=== PATIENT | female | born 1985 | race Caucasian/White ===

== ENCOUNTER 2016-11-10 22:46 | Outpatient (CLI) | payer BC, MEDICAID, OTHER ==
[~2016-11-10] VITALS: Ht 154.9 cm; Wt 70.8 kg
[2016-11-10 23:03] VITALS: Ht 154.9 cm; Wt 70.8 kg
[2016-11-10] MEDS ORDERED: PREN1TAB79 PO (23:03)
[2016-11-10] MEDS ORDERED: PYRI50TA80 PO (23:03)
[2016-11-10] MEDS ORDERED: FERR325C PO (23:03)
[2016-11-10 23:05] VITALS: BP 106/65; PULSE 110; RESP 20
[2016-11-11] MEDS ORDERED: TERBUTALINE 1 MG/ML INJ SC PRN (00:30)
[2016-11-11] MEDS: LACTATED RINGER'S 1,000 ML IV* PRN ×2 (01:04→05:12)
[2016-11-11] MEDS ORDERED: NIFEdipine 10 MG CAP PO ONE (01:30)
[2016-11-11] MEDS ORDERED: morphine 10 MG INJ IM ONE (02:30)
--- NOTE | 2016-11-11 07:32 | QN ---
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 Nov 11, 2016 07:32
--- NOTE | 2016-11-11 08:48 | RADRPT ---
PROCEDURE: OB ultrasound CLINICAL INDICATION: Pelvic pain TECHNIQUE: Multiple transverse and longitudinal OB images of the pelvis were obtained. The images were reviewed on a high-resolution PACS workstation. COMPARISON: None FINDINGS: A single live intrauterine is seen. The presentation is vertex. The placenta is grade II and anterior in location. No evidence of placenta abruption or previa is seen. The heart rate is 130 beats per minute. The amniotic fluid index is 11 cm. movement 2 tone 2 breathing 2 Amniotic fluid 2 IMPRESSION: Biophysical profile of 05/07. RPTAT: HPNM Physician Danita Date Time Electronically viewed and signed by Physician Danita on 11/11/2016 08:48 /
--- NOTE | 2016-11-11 09:44 | TRIAGE ---
OB Triage Datetime Report Generated by CPN: 11/11/2016 09:43 Datetime: 11/11/2016 09:00 Stage of : OB Triage Maternal Assessment Level of Consciousness: Fully Conscious RUQ Epigastric Pain: Denies Labor Evaluation Frequency: NONE Monitor Mode: External Quality: Mild Resting Tone [place]: Relaxed Heart Rate FHR Baseline Rate: 125 Monitor Mode: External US FHR Baseline Changes: Return to Previous Baseline Variability: Moderate 6-25 bpm Accelerations: 15X15 Decelerations: None Pain Assessment Pain Scale: 0 Pain Presence: None/Denies Pain Type: N/A Pain Goal: 3 Membrane Status: Intact Vaginal Bleeding: None Datetime: 11/11/2016 08:00 Stage of : OB Triage Maternal Assessment Level of Consciousness: Fully Conscious RUQ Epigastric Pain: Denies Labor Evaluation Frequency: NONE Monitor Mode: External Quality: Mild Resting Tone [place]: Relaxed Heart Rate FHR Baseline Rate: 125 Monitor Mode: External US FHR Baseline Changes: Return to Previous Baseline Variability: Moderate 6-25 bpm Accelerations: 15X15 Decelerations: None Pain Assessment Pain Scale: 0 Pain Presence: None/Denies Pain Type: N/A Pain Goal: 3 Membrane Status: Intact Vaginal Bleeding: None Datetime: 11/11/2016 07:00 Stage of : OB Triage Assessment Type: Triage Maternal Assessment Level of Consciousness: Fully Conscious Blurred Vision: No Respiratory Effort: Unlabored; Regular Rhythm; Equal Expansion RUQ Epigastric Pain: Denies Lower Extremities Edema: None Degree: None Upper Extremities Edema: None Degree: None Facial Edema: None Fall Risk Assessment History of Falling: (0) No Secondary Diagnosis: (0) No Ambulatory Aid: (0) Bedrest/Nurse Assist IV Therapy: (0) No Gait: (0) Normal/Bedrest/Immobile Mental Status: (0) Oriented to Own Ability Fall Score: 0 Fall Risk Score Definition: No Risk: No action required Labor Evaluation Frequency: NONE Monitor Mode: External Quality: Mild Resting Tone [place]: Relaxed Heart Rate FHR Baseline Rate: 110 Monitor Mode: External US Variability: Moderate 6-25 bpm Accelerations: None (Annotations: PT RECEIVED MORPHINE SULFATE FOR PAIN CONTROL) Decelerations: None Pain Assessment Pain Scale: 0 Pain Presence: None/Denies Pain Type: N/A Pain Goal: 3 Membrane Status: Intact Vaginal Bleeding: None Datetime: 11/11/2016 06:53 Labor Evaluation Frequency: NONE Monitor Mode: External Duration (sec)2399: NONE Pattern: Normal: <= 5 Contractions in 10 Minutes Heart Rate FHR Baseline Rate: 120 Monitor Mode: External US FHR Baseline Changes: No Baseline Change Variability: Moderate 6-25 bpm Datetime: 11/11/2016 06:00 Labor Evaluation Frequency: NONE Monitor Mode: External Duration (sec)2399: none Pattern: Normal: <= 5 Contractions in 10 Minutes Heart Rate FHR Baseline Rate: 120 Monitor Mode: External US FHR Baseline Changes: No Baseline Change Variability: Moderate 6-25 bpm Decelerations: None Category: Category I Datetime: 11/11/2016 05:00 Labor Evaluation Frequency: X2 Monitor Mode: External Duration (sec)2399: 60-80 Pattern: Normal: <= 5 Contractions in 10 Minutes Heart Rate FHR Baseline Rate: 125 Monitor Mode: External US FHR Baseline Changes: No Baseline Change Variability: Moderate 6-25 bpm Accelerations: 15X15 Decelerations: None Category: Category I Datetime: 11/11/2016 04:00 Labor Evaluation Frequency: X2 Monitor Mode: External Duration (sec)2399: 40-70 Pattern: Normal: <= 5 Contractions in 10 Minutes Heart Rate FHR Baseline Rate: 135 Monitor Mode: External US FHR Baseline Changes: No Baseline Change Variability: Moderate 6-25 bpm Accelerations: 15X15 Decelerations: None Datetime: 11/11/2016 03:14 Stage of : OB Triage Pain Assessment Pain Scale: 7 Pain Presence: Intermittent Pain Type: Cramping Pain Location: Abdomen Pain Goal: 0 Pain Relief Measures: Pain Medication Given Datetime: 11/11/2016 03:00 Labor Evaluation Frequency: NONE Monitor Mode: External Duration (sec)2399: NONE Pattern: Normal: <= 5 Contractions in 10 Minutes Heart Rate FHR Baseline Rate: 125 Monitor Mode: External US FHR Baseline Changes: No Baseline Change Variability: Moderate 6-25 bpm Category: Category I Datetime: 11/11/2016 02:13 Monitor Mode: Palpation Resting Tone [place]: Relaxed Monitor Mode: External US Datetime: 11/11/2016 02:11 Vaginal Exam Dilatation (cms): 1.0 Effacement (%): 60 Station: -3 Exam By: lottie rn Datetime: 11/11/2016 02:00 Labor Evaluation Frequency: 8-12 Monitor Mode: External Duration (sec)2399: 90-120 Pattern: Normal: <= 5 Contractions in 10 Minutes Heart Rate FHR Baseline Rate: 130 Monitor Mode: External US FHR Baseline Changes: No Baseline Change Variability: Moderate 6-25 bpm Datetime: 11/11/2016 01:00 Labor Evaluation Frequency: X4 Monitor Mode: External Duration (sec)2399: 50-80 Pattern: Normal: <= 5 Contractions in 10 Minutes Heart Rate FHR Baseline Rate: 140 Monitor Mode: External US FHR Baseline Changes: No Baseline Change Variability: Moderate 6-25 bpm Accelerations: Prolonged Category: Category I Datetime: 11/11/2016 00:21 Stage of : OB Triage Datetime: 11/11/2016 00:00 Labor Evaluation Frequency: OCC Monitor Mode: External Duration (sec)2399: 40-60 Pattern: Normal: <= 5 Contractions in 10 Minutes Heart Rate FHR Baseline Rate: 150 Monitor Mode: External US FHR Baseline Changes: No Baseline Change Variability: Moderate 6-25 bpm Accelerations: 15X15 Decelerations: None Category: Category I Datetime: 11/10/2016 23:30 Labor Evaluation Frequency: OCCASIONAL Monitor Mode: External Pattern: Normal: <= 5 Contractions in 10 Minutes Heart Rate FHR Baseline Rate: 140 Monitor Mode: External US FHR Baseline Changes: No Baseline Change Variability: Moderate 6-25 bpm Decelerations: None Datetime: 11/10/2016 23:04 Vaginal Exam Dilatation (cms): 1.0 Effacement (%): 60 Station: -3 Exam By: LOTTIE RN Vaginal Bleeding: None Cervix, Consistency: Moderate Cervix, Position: Posterior Presentation 'A': Cephalic Datetime: 11/10/2016 23:00 Assessment Type: Triage Maternal Assessment Level of Consciousness: Fully Conscious DTR's/Clonus: DTRs 2+; No Clonus Headache: Denies Blurred Vision: No Respiratory Effort: Unlabored; Regular Rhythm; Equal Expansion Breath Sounds, Left: Clear and Equal Breath Sounds, Right: Clear and Equal Nausea/Vomiting: Denies RUQ Epigastric Pain: Denies Lower Extremities Edema: None Upper Extremities Edema: None Facial Edema: None Fall Risk Assessment History of Falling: (0) No Secondary Diagnosis: (0) No Ambulatory Aid: (0) Bedrest/Nurse Assist IV Therapy: (0) No Gait: (0) Normal/Bedrest/Immobile Mental Status: (0) Oriented to Own Ability Fall Score: 0 Fall Risk Score Definition: No Risk: No action required Datetime: 11/10/2016 22:58 EGA: 35.2 Time Provider Notified: 11/10/2016 22:58 Provider Notified: REICHE Datetime: 11/10/2016 22:57 Time of Arrival: 11/10/2016 22:40 Arrived By: Ambulatory Arrived From: Home Chief Complaint: UC'S SINCE X3DAYS,OCCASIONAL Movement: Present Contractions: Occasional Time Contractions Began: 11/07/2016 09:00 Contractions: [id number] Rupture of Membranes: Denies Vaginal Bleeding: None Vaginal Discharge: Present Recent Sexual Intercouse: Denies Abdominal Trauma: Not Applicable Patient Complaints: Contractions Time Provider Notified: 11/10/2016 22:58 Provider Notified: REICHE Initial Plan: efm, sve, call ob Datetime: 11/10/2016 22:55 Stage of : OB Triage Pain Assessment Pain Scale: 6 Pain Presence: Intermittent Pain Type: Contraction Datetime: 11/10/2016 22:53 Stage of : OB Triage Monitor Mode: External (Annotations: MONITORS APPLIED) Monitor Mode: External US (Annotations: MONITORS APPLIED)
== END 2016-11-11 10:05 | disposition home or self-care (01) ==
LOC: OBT 22:46 → L-D 22:48 → OBT 11-11 10:05
PROVIDERS: ATTEND Obstetrics & Gynecology
DX: O62.9 Abnormality of forces of labor, unspecified (principal); R10.2 Pelvic and perineal pain; Z3A.35 35 weeks gestation of pregnancy
CPT/HCPCS: 36415; 76818; 96360; 96361; 96367; J2270; Z7500; Z7610; G0463; J3105

== ENCOUNTER 2016-11-14 17:14 | Inpatient (IN) | payer OTHER ==
[~2016-11-14] VITALS: Ht 154.9 cm; Wt 70.3 kg
[~2016-11-14 17:14] MED LIST: FERR325C PO; PREN1TAB79 PO; PYRI50TA80 PO
[2016-11-14 17:38] VITALS: BP 97/61; PULSE 110; RESP 18; Ht 154.9 cm; Wt 70.3 kg
[2016-11-14 18:13] LABS: ADD UMIC YES; URINE BILIRUBIN (Dip) 1+ (NEGATIVE); URINE BLOOD (Dip) TRACE (NEGATIVE); URINE COLOR YELLOW (YELLOW); URINE GLUCOSE (Dip) NEGATIVE (NEGATIVE); URINE KETONES (Dip) TRACE (NEGATIVE); URINE LEUKOCYTE ESTERASE (Dip) 1+ (NEGATIVE); URINE NITRITE (Dip) NEGATIVE (NEGATIVE); URINE TOTAL PROTEIN (Dip) TRACE (NEGATIVE); URINE UROBILINOGEN (Dip) 0.2 E.U./dL (0.1-1.0)
[2016-11-14 18:19] LABS: BACTERIA,URINE MODERATE; ICTOTEST NEGATIVE (NEGATIVE)
--- NOTE | 2016-11-14 18:40 | RADRPT ---
PROCEDURE: OB ultrasound CLINICAL INDICATION: Contractions TECHNIQUE: Multiple transverse and longitudinal OB images of the pelvis were obtained. The images were reviewed on a high-resolution PACS workstation. COMPARISON: 11/11/2016 FINDINGS: A single live intrauterine is seen. The presentation is vertex. The placenta is grade II and anterior in location. No evidence of placenta abruption or previa is seen. Anechoic area is seen in the tip of the placenta measuring 2 x 0.8 cm in size and may represent a venous cordova The h eart rate is 130 beats per minute. The amniotic fluid index is 13.6 cm. movement 2 tone 2 breathing 2 Amniotic fluid 2 IMPRESSION: Biophysical profile of 05/07. RPTAT: HPNM Physician Danita Date Time Electronically viewed and signed by Physician Danita on 11/14/2016 18:40 /
[2016-11-14 23:10] LABS: BARBITURATES NEGATIVE (NEGATIVE); BENZODIAZEPINES NEGATIVE (NEGATIVE); CANNABINOIDS NEGATIVE (NEGATIVE); OPIATES NEGATIVE (NEGATIVE)
[2016-11-14 23:22] LABS: COCAINE NEGATIVE (NEGATIVE)
== END 2016-11-15 12:57 | disposition left against medical advice (07) | DRG 780 ==
LOC: OBT 17:14 → L-D 17:14 → OBG 18:00 → OBT 18:00
PROVIDERS: ADMIT Obstetrics & Gynecology; ATTEND Obstetrics & Gynecology
DX: O47.03 False labor before 37 completed weeks of gestation, third trimester (principal); Z3A.35 35 weeks gestation of pregnancy
CPT/HCPCS: 76818; 80307; 81001; 81003; G0463

== ENCOUNTER 2016-11-23 16:15 | Outpatient (CLI) | payer OTHER ==
[2016-11-23 16:41] VITALS: BP 103/61
[2016-11-23] MEDS ORDERED: METOCLOPRAMIDE 10 MG INJ IV ONE (17:30)
[2016-11-23] MEDS ORDERED: LACTATED RINGER'S 1,000 ML IV ONE (17:30)
[2016-11-23] MEDS ORDERED: CITRIC ACID/NA CITRATE 30 ML CUP PO ONE (17:30)
--- NOTE | 2016-11-23 19:05 | HP ---
Date/Time of Note Date/Time of Note DATE: 11/23/16 TIME: 19:01 OB - History Hx of Present Free Text/Dictation OB Triage Pt is a 30yo at 37+1 with hx of prior C/S x2 presenting with c/o N/V and heartburn. Pt has known gallstones and denies eating any trigger foods. Reports normal FM, denies LOF or VB. Reports feeling some UCs. Pt was seen by Dr. Dillard in clinic today and per pt was instructed to rest. She does not yet have a C/S scheduled however expresses a desire to be delivered today. Estimated Due Date: Dec 13, 2016 : 6 Para: 2 Care: Good Care Past Family/Social History * Past Medical, Surgical, Family and Obstetric Histories reviewed from chart. OB Admission Exam Vital Signs Vital Signs Vital Signs Date Time Temp Pulse Resp B/P Pulse Ox O2 Delivery O2 Flow Rate FiO2 11/23/16 16:41 98.0 103/61 Room Air Physical Exam Heart Rate: 130's Accelerations: Accelerations Present Decelerations: No Decelerations Varibility: Moderate Contractions on Admission: >10 Minutes Apart OB Assessment/Plan Other Assessment: GI upset Term contractions Hx of C/S x2 Other plan: FWB reassuring, reactive NST IV placed- will start IV hydration Urine sent for analysis IV Reglan and Bicitra given Pt will need to be reevaluated after meds to determine dispo plan WHITNEY ADAMS MD Nov 23, 2016 19:05
[2016-11-23 19:20] LABS: URINE BLOOD (Dip) POC Trace-intact (NEGATIVE)
[2016-11-23] MEDS ORDERED: DEXTROSE 5%-LR 1,000 ML IV STA (19:40)
[2016-11-23 19:46] LABS: ADD UMIC YES; URINE BILIRUBIN (Dip) 1+ (NEGATIVE); URINE BLOOD (Dip) TRACE (NEGATIVE); URINE COLOR YELLOW (YELLOW); URINE GLUCOSE (Dip) NEGATIVE (NEGATIVE); URINE KETONES (Dip) TRACE (NEGATIVE); URINE LEUKOCYTE ESTERASE (Dip) TRACE (NEGATIVE); URINE NITRITE (Dip) NEGATIVE (NEGATIVE); URINE TOTAL PROTEIN (Dip) TRACE (NEGATIVE); URINE UROBILINOGEN (Dip) 1.0 E.U./dL (0.1-1.0)
[2016-11-23 19:57] LABS: BACTERIA,URINE MODERATE; URINE RBCS 0-2 /HPF (0)
[2016-11-23 20:21] LABS: ICTOTEST NEGATIVE (NEGATIVE)
== END 2016-11-23 21:10 | disposition home or self-care (01) ==
LOC: OBT 16:15 → L-D 16:15 → OBT 21:10
PROVIDERS: ATTEND Obstetrics & Gynecology
DX: O99.613 Diseases of the digestive system complicating pregnancy, third trimester (principal); K30 Functional dyspepsia; O62.9 Abnormality of forces of labor, unspecified; Z3A.37 37 weeks gestation of pregnancy
CPT/HCPCS: 36415; 81001; 96360; 96366; J2765; J7120; J7121; Z7500; Z7610; 81003; G0463

== ENCOUNTER 2016-12-06 05:39 | Inpatient (IN) | payer OTHER ==
[~2016-12-06] VITALS: Ht 154.9 cm; Wt 70.7 kg
[2016-12-06 05:56] VITALS: Ht 154.9 cm; Wt 70.7 kg
[2016-12-06 05:59] VITALS: BP 97/64; PULSE 103; RESP 20
[2016-12-06] MEDS ORDERED: CARBOPROST 250 MCG INJ IM PRN ×2 (06:00→09:30)
[2016-12-06] MEDS ORDERED: MISOPROSTOL 200 MCG TAB PR PRN ×2 (06:00→09:30)
[2016-12-06] MEDS ORDERED: OXYTOCIN 30 UNITS/LR 500 ML IV SCH (06:00)
[2016-12-06] MEDS ORDERED: METHYLERGONOVINE 0.2 MG INJ IM PRN ×2 (06:00→09:30)
[2016-12-06] MEDS ORDERED: OXYTOCIN 30 UNITS/LR 500 ML IV PRN (06:00)
[2016-12-06] MEDS: LACTATED RINGER'S 1,000 ML IV SCH ×4 (06:00→18:20)
[2016-12-06 06:19] LABS: ADD SCAN DIFF NO
[2016-12-06 06:24] LABS: BASOPHILS % 0.2 % (0.0-2.0); EOSINOPHILS # 0.1 10^3/ul (0.0-0.5); EOSINOPHILS % 0.7 % (0.0-7.0); HEMATOCRIT 34.3 % (37.0-47.0); HEMOGLOBIN 10.9 g/dl (12.0-16.0); LYMPHOCYTES # 3.4 10^3/ul (0.8-2.9); MEAN CORPUSCULAR HEMOGLOBIN 25.7 pg (29.0-33.0); MEAN CORPUSCULAR HGB CONC 31.8 g/dl (32.0-37.0); MEAN CORPUSCULAR VOLUME 80.9 fl (82.0-101.0); MEAN PLATELET VOLUME 9.9 fl (7.4-10.4); MONOCYTE # 0.6 10^3/ul (0.3-0.9); MONOCYTES % 5.9 % (0.0-11.0); NEUTROPHIL # 5.3 10^3/ul (1.6-7.5); NEUTROPHILS % 56.8 % (39.0-77.0); PLATELET COUNT 353 10^3/UL (140-415); RED BLOOD COUNT 4.24 10^6/ul (4.20-5.40); RED CELL DISTRIBUTION WIDTH 15.8 % (11.5-14.5); WHITE BLOOD COUNT 9.4 10^3/ul (4.8-10.8)
[2016-12-06 06:39] LABS: INR 0.91; PROTIME 12.2 Sec (12.2-14.2)
[2016-12-06 06:40] LABS: PARTIAL THROMBOPLASTIN TIME 26.1 Sec (25.0-35.0)
[2016-12-06] MEDS ORDERED: ONDANSETRON 4 MG INJ IV STA (07:09)
[2016-12-06] MEDS ORDERED: CITRIC ACID/NA CITRATE 30 ML CUP PO ONE (07:30)
[2016-12-06] MEDS ORDERED: GENTAMICIN 80 MG/NS (PMX) 50 ML IVPB SCH (07:30)
[2016-12-06] MEDS ORDERED: CLINDAMYCIN 900 MG/D5W (PMX) 50 ML IVPB SCH (07:30)
[2016-12-06] MEDS ORDERED: FENTAnyl 50 MCG/ML VIAL ONE (07:54)
[2016-12-06] MEDS ORDERED: METOCLOPRAMIDE 10 MG INJ ONE (07:54)
[2016-12-06] MEDS ORDERED: morphine SULFATE/PF (10 MG/10 ML) INJ ONE (07:54)
[2016-12-06] MEDS ORDERED: PHENYLephrine (100 MCG/ML) 5ML SYG ONE (07:54)
[2016-12-06] MEDS ORDERED: OXYTOCIN 10 UNIT INJ ONE (07:55)
[2016-12-06] MEDS ORDERED: DIPHENHYDRAMINE 50 MG INJ IV PRN ×3 (08:30→13:00)
[2016-12-06] MEDS ORDERED: morphine 2 MG INJ IV PRN ×2 (08:30)
[2016-12-06] MEDS ORDERED: hydrALAzine 20 MG INJ IV PRN (08:30)
[2016-12-06] MEDS ORDERED: ZOLPIDEM 5 MG TAB PO PRN ×2 (08:30→13:00)
[2016-12-06] MEDS ORDERED: EPHEDrine SULFATE 50 MG/5 ML SYG IV PRN (08:30)
[2016-12-06] MEDS ORDERED: HYDROmorphONE (0.2 MG/ML) 10ML SYG IV PRN ×3 (08:30)
[2016-12-06] MEDS ORDERED: LABETALOL HCL 20MG INJ IV PRN (08:30)
[2016-12-06] MEDS ORDERED: FENTAnyl 50 MCG/ML VIAL IV PRN ×3 (08:30)
[2016-12-06] MEDS ORDERED: KETOROLAC 30 MG INJ IV PRN (08:30)
[2016-12-06] MEDS ORDERED: ONDANSETRON 4 MG INJ IV PRN ×3 (08:30→13:00)
[2016-12-06] MEDS ORDERED: MEPERIDINE 25 MG INJ IV PRN (08:30)
[2016-12-06] MEDS ORDERED: TRIMETHOBENZAMIDE 100 MG/ML VIAL IM PRN (08:30)
[2016-12-06] MEDS ORDERED: NALOXONE (0.4 MG/ML) INJ IV PRN ×2 (08:30→13:00)
--- NOTE | 2016-12-06 09:09 | PREOPHP ---
DATE OF ADMISSION: 12/06/2016 HISTORY OF PRESENT ILLNESS: Ms. Hanson is a 30-year-old 6, para 2, EDC of 017, intrauterine at 39 weeks gestational age, with a history of 2 previous C-sections, ad mitted today for elective repeat . Her care took place at [facility] PAST MEDICAL HISTORY: None. MEDICATIONS: vitamins, [place] injections q. weekly. PAST SURGICAL HISTORY: Previous sections x2. OBSTETRICAL HISTORY: Previous C-sections x2, missed AB x3. SOCIAL HISTORY: Denies any smoking, drugs or alcohol. FAMILY HISTORY: None. PHYSICAL EXAMINATION: HEENT: Within normal. LUNGS: CTA bilateral. CARDIOVASCULAR: S1, S2, regular rhythm. ABDOMEN: Gravid, nontender. Negative CVA bilaterally. EXTREMITIES: Negative edema. No calf tenderness. PELVIC: Vaginal exam deferred. ASSESSMENT: Intrauterine at 39 weeks' gestational age, desires elective repeat . Declined vaginal after . PLAN: Consent for a repeat delivery. The risks, benefits and alternatives were explained. All questions were answered. Dictated By: NEO SNYDER/FAITH Conf#: [id number] DID#: [id number]
[2016-12-06] MEDS: OXYTOCIN 30 UNITS/LR 500 ML IV PRN ×3 (09:25→13:12)
[2016-12-06] MEDS ORDERED: LANOLIN 7 GM TUBE TOP PRN (09:30)
[2016-12-06] MEDS ORDERED: OXYCODONE/ACETAMINOPHEN (5/325) TAB PO PRN (09:30)
[2016-12-06 12:00] VITALS: BP 101/69; PULSE 65; RESP 18
[2016-12-06] MEDS: IBUPROFEN 600 MG TAB PO SCH ×2 (12:00→17:55)
[2016-12-06] MEDS ORDERED: PROCHLORPERAZINE 10 MG INJ IV PRN (13:00)
[2016-12-06] MEDS ORDERED: HYDROmorphONE 1 MG/ML SYG IV PRN ×2 (13:00)
[2016-12-06 13:47] LABS: ADD SCAN DIFF NO
[2016-12-06 13:52] LABS: BASOPHILS % 0.2 % (0.0-2.0); EOSINOPHILS % 0.2 % (0.0-7.0); HEMATOCRIT 27.8 % (37.0-47.0); HEMOGLOBIN 8.9 g/dl (12.0-16.0); LYMPHOCYTES # 1.9 10^3/ul (0.8-2.9); LYMPHOCYTES % 17.4 % (15.0-51.0); MEAN CORPUSCULAR HEMOGLOBIN 26.3 pg (29.0-33.0); MEAN PLATELET VOLUME 9.7 fl (7.4-10.4); MONOCYTE # 0.5 10^3/ul (0.3-0.9); MONOCYTES % 4.5 % (0.0-11.0); NEUTROPHIL # 8.6 10^3/ul (1.6-7.5); NEUTROPHILS % 77.4 % (39.0-77.0); PLATELET COUNT 280 10^3/UL (140-415); RED BLOOD COUNT 3.39 10^6/ul (4.20-5.40); RED CELL DISTRIBUTION WIDTH 15.8 % (11.5-14.5); WHITE BLOOD COUNT 11.1 10^3/ul (4.8-10.8)
[2016-12-06] MEDS: KETOROLAC 30 MG INJ IV PRN (15:40)
[2016-12-06 16:00] VITALS: BP 90/53; PULSE 74; RESP 18
[2016-12-06] MEDS: CLINDAMYCIN 900 MG/D5W (PMX) 50 ML IVPB SCH (16:23)
[2016-12-06 20:30] VITALS: BP 89/51; PULSE 77; RESP 18
[2016-12-06] MEDS: FERROUS SULFATE (EC) 325 MG TAB PO SCH (20:37)
[2016-12-06] MEDS: SENNA/DOCUSATE NA (8.6MG/50MG) TAB PO SCH (20:37)
[2016-12-07] VITALS: BP 92/55; PULSE 74; RESP 18
[2016-12-07] MEDS: CLINDAMYCIN 900 MG/D5W (PMX) 50 ML IVPB SCH ×2 (01:20→01:30)
[2016-12-07] MEDS: LACTATED RINGER'S 1,000 ML IV SCH ×3 (01:21→17:05)
[2016-12-07 03:50] VITALS: BP 98/52; PULSE 88; RESP 17
[2016-12-07 06:54] LABS: ADD SCAN DIFF NO
[2016-12-07 07:00] LABS: BASOPHILS % 0.1 % (0.0-2.0); EOSINOPHILS % 0.3 % (0.0-7.0); HEMATOCRIT 23.3 % (37.0-47.0); HEMOGLOBIN 7.3 g/dl (12.0-16.0); LYMPHOCYTES # 1.2 10^3/ul (0.8-2.9); LYMPHOCYTES % 16.4 % (15.0-51.0); MEAN CORPUSCULAR HEMOGLOBIN 25.5 pg (29.0-33.0); MEAN CORPUSCULAR HGB CONC 31.3 g/dl (32.0-37.0); MEAN CORPUSCULAR VOLUME 81.5 fl (82.0-101.0); MEAN PLATELET VOLUME 9.9 fl (7.4-10.4); MONOCYTE # 0.5 10^3/ul (0.3-0.9); MONOCYTES % 6.1 % (0.0-11.0); NEUTROPHIL # 5.7 10^3/ul (1.6-7.5); NEUTROPHILS % 76.8 % (39.0-77.0); PLATELET COUNT 257 10^3/UL (140-415); RED BLOOD COUNT 2.86 10^6/ul (4.20-5.40); RED CELL DISTRIBUTION WIDTH 15.8 % (11.5-14.5); WHITE BLOOD COUNT 7.4 10^3/ul (4.8-10.8)
[2016-12-07 08:00] VITALS: BP 88/52; PULSE 79; RESP 18
[2016-12-07] MEDS: FERROUS SULFATE (EC) 325 MG TAB PO SCH ×2 (08:33→22:04)
[2016-12-07] MEDS: KETOROLAC 30 MG INJ IV PRN (08:33)
[2016-12-07] MEDS: SENNA/DOCUSATE NA (8.6MG/50MG) TAB PO SCH ×2 (08:33→22:04)
[2016-12-07] MEDS ORDERED: CLINDAMYCIN 900 MG/D5W (PMX) 50 ML IVPB SCH (09:00)
[2016-12-07 11:40] VITALS: BP 83/49
[2016-12-07] MEDS: IBUPROFEN 600 MG TAB PO SCH ×5 (12:00→23:12)
[2016-12-07 16:20] VITALS: BP 97/52; PULSE 113; RESP 12
[2016-12-07 20:05] VITALS: BP 99/59; PULSE 100; RESP 18
--- NOTE | 2016-12-07 20:09 | QN ---
Documentation Comment Comment patient seen and evaluated no complaints vs stable ab uterine fundus firm no distention c/d/i extremity no edema no calf tenderness a/ sp cd pod 1 asymptomatic anemia stable p/ iron supplement repeat cbc in am NEO POSEY MD Dec 07, 2016 20:09
[2016-12-08 04:00] VITALS: BP 100/57; PULSE 96; RESP 19
[2016-12-08] MEDS: IBUPROFEN 600 MG TAB PO SCH ×4 (05:23→23:30)
[2016-12-08 07:30] LABS: ADD SCAN DIFF NO
[2016-12-08 07:35] VITALS: BP 83/48; PULSE 82; RESP 18
[2016-12-08 07:35] LABS: BASOPHILS % 0.1 % (0.0-2.0); EOSINOPHILS # 0.1 10^3/ul (0.0-0.5); EOSINOPHILS % 1.2 % (0.0-7.0); HEMATOCRIT 22.7 % (37.0-47.0); HEMOGLOBIN 7.3 g/dl (12.0-16.0); LYMPHOCYTES # 1.6 10^3/ul (0.8-2.9); LYMPHOCYTES % 16.6 % (15.0-51.0); MEAN CORPUSCULAR HEMOGLOBIN 26.2 pg (29.0-33.0); MEAN CORPUSCULAR HGB CONC 32.2 g/dl (32.0-37.0); MEAN CORPUSCULAR VOLUME 81.4 fl (82.0-101.0); MEAN PLATELET VOLUME 10.1 fl (7.4-10.4); MONOCYTE # 0.7 10^3/ul (0.3-0.9); MONOCYTES % 6.7 % (0.0-11.0); NEUTROPHIL # 7.3 10^3/ul (1.6-7.5); NEUTROPHILS % 75.1 % (39.0-77.0); PLATELET COUNT 269 10^3/UL (140-415); RED BLOOD COUNT 2.79 10^6/ul (4.20-5.40); WHITE BLOOD COUNT 9.8 10^3/ul (4.8-10.8)
[2016-12-08] MEDS: OXYCODONE/ACETAMINOPHEN (5/325) TAB PO PRN ×2 (07:35→20:27)
[2016-12-08] MEDS: SENNA/DOCUSATE NA (8.6MG/50MG) TAB PO SCH ×2 (10:19→20:26)
[2016-12-08] MEDS: FERROUS SULFATE (EC) 325 MG TAB PO SCH ×2 (10:19→20:26)
--- NOTE | 2016-12-08 11:21 | PN ---
Date/Time of Note Date/Time of Note DATE: 12/08/16 TIME: 11:19 OB Subjective Subjective Subjective Post date Vital signs stable, abdomen soft bowel sounds present patient had normal bowel movement ,incision dry, extremity normal. Ambulation is recommended Laboratory Tests Test 12/08/16 06:28 Basophils # 0.010^3/ul Basophils % 0.1% Eosinophils # 0.110^3/ul Eosinophils % 1.2% Hematocrit 22.7% Hemoglobin 7.3g/dl Lymphocytes # 1.610^3/ul Lymphocytes % 16.6% Mean Corpuscular Hemoglobin 26.2pg Mean Corpuscular Hemoglobin Concent 32.2g/dl Mean Corpuscular Volume 81.4fl Mean Platelet Volume 10.1fl Monocytes # 0.710^3/ul Monocytes % 6.7% Neutrophils # 7.310^3/ul Neutrophils % 75.1% Nucleated Red Blood Cells # 0.010^3/ul Nucleated Red Blood Cells % 0.0/100WBC Platelet Count 85824^3/UL Red Blood Count 2.7910^6/ul Red Cell Distribution Width 16.0% White Blood Count 9.810^3/ul Current Medications Medications (Trade) Dose Ordered Sig/Alhaji Route PRN Reason Start Time Stop Time Status Last Admin Dose Admin Oxytocin/Lactated Ringer's 500 ml @ 125 mls/hr ONCE IV 12/06/16 06:00 12/06/16 09:13 DC Oxytocin/Lactated Ringer's 500 ml @ 0 mls/hr ONCE PRN IV For Hemorrhage Management 12/06/16 06:00 12/06/16 09:13 DC Methylergonovine Maleate (Methergine) 0.2 mg ONCE PRN IM VAGINAL BLEEDING 12/06/16 06:00 12/06/16 09:13 DC Carboprost Tromethamine (Hemabate) 250 mcg ONCE PRN IM VAGINAL BLEEDING 12/06/16 06:00 12/06/16 09:13 DC Misoprostol (Cytotec) 1,000 mcg ONCE PRN MO VAGINAL BLEEDING 12/06/16 06:00 12/06/16 09:13 DC Ondansetron HCl (Zofran Inj) 4 mg ONCE STAT IV 12/06/16 07:09 12/06/16 07:16 DC 12/06/16 07:41 Citric Acid/ Sodium Citrate 30 ml 30 ml ONCE ONCE PO 12/06/16 07:30 12/06/16 07:31 DC 12/06/16 07:41 Clindamycin HCl/ Dextrose 50 ml @ 50 mls/hr ONCE IVPB 12/06/16 07:30 12/06/16 08:29 DC 12/06/16 07:42 Gentamicin Sulfate 50 ml @ 104 mls/hr Q8H IVPB 12/06/16 07:30 12/06/16 09:13 DC 12/06/16 07:41 Lactated Ringer's (Lr) 1,000 ml @ 1,000 mls/hr Q1H IV 12/06/16 07:30 12/06/16 08:29 DC 12/06/16 07:41 Fentanyl (Sublimaze) 100 mcg STK-MED ONCE .ROUTE 12/06/16 07:54 12/06/16 07:55 DC Morphine Sulfate (Duramorph) 10 mg STK-MED ONCE .ROUTE 12/06/16 07:54 12/06/16 07:55 DC Phenylephrine HCl (Tomas-Synephrine Inj Syg) 500 mcg STK-MED ONCE .ROUTE 12/06/16 07:54 12/06/16 07:55 DC Metoclopramide HCl (Reglan) 10 mg STK-MED ONCE .ROUTE 12/06/16 07:54 12/06/16 07:55 DC Oxytocin (Oxytocin) 10 units STK-MED ONCE .ROUTE 12/06/16 07:55 12/06/16 07:56 DC Hydromorphone HCl (Dilaudid (Rec)) 0.2 mg PACU ORDER PRN IV MILD PAIN LEVEL 1-3 12/06/16 08:30 12/06/16 09:13 DC Hydromorphone HCl (Dilaudid (Rec)) 0.4 mg PACU ORDER PRN IV MODERATE PAIN LEVEL 4-6 12/06/16 08:30 12/06/16 09:13 DC Hydromorphone HCl (Dilaudid (Rec)) 0.6 mg PACU ORDER PRN IV SEVERE PAIN LEVEL 7-10 12/06/16 08:30 12/06/16 09:13 DC Fentanyl (Sublimaze) 25 mcg PACU ORDER PRN IV MILD PAIN LEVEL 1-3 12/06/16 08:30 12/06/16 09:13 DC Fentanyl (Sublimaze) 50 mcg PACU ODER PRN IV MODERATE PAIN LEVEL 4-6 12/06/16 08:30 12/06/16 09:13 DC Fentanyl (Sublimaze) 75 mcg PACU ORDER PRN IV SEVERE PAIN LEVEL 7-10 12/06/16 08:30 12/06/16 09:13 DC Ondansetron HCl (Zofran Inj) 4 mg PACU ORDER PRN IV NAUSEA AND/OR VOMITING 12/06/16 08:30 12/06/16 09:13 DC Trimethobenzamide HCl (Tigan) 200 mg PACU ORDER PRN IM NAUSEA AND/OR VOMITING 12/06/16 08:30 12/06/16 09:13 DC Labetalol HCl (Labetalol) 5 mg PACU ORDER PRN IV HIGH BLOOD PRESSURE 12/06/16 08:30 12/06/16 09:13 DC Hydralazine HCl (Apresoline) 5 mg PACU ORDER PRN IV HIGH BLOOD PRESSURE 12/06/16 08:30 12/06/16 09:13 DC Ephedrine Sulfate 5 mg PACU ORDER PRN IV MAP LESS THAN 60 12/06/16 08:30 12/06/16 09:13 DC Meperidine HCl (Demerol) 25 mg PACU ORDER PRN IV POST-OP RIGORS 12/06/16 08:30 12/06/16 09:13 DC Diphenhydramine HCl (Benadryl) 25 mg PACU ORDER PRN IV PRURITUS 12/06/16 08:30 12/06/16 09:13 DC Naloxone HCl (Narcan) 0.1 mg Q2M PRN IV FOR RESP RATE 8 OR LESS 12/06/16 08:30 12/06/16 09:13 DC Ketorolac Tromethamine (Toradol) 30 mg Q6H PRN IV PAIN 12/06/16 08:30 12/06/16 09:13 DC Morphine Sulfate (morphine) 2 mg Q3H PRN IV PAIN LEVEL 1-5 12/06/16 08:30 12/06/16 09:13 DC Morphine Sulfate (morphine) 4 mg Q3H PRN IV PAIN LEVEL 6-10 12/06/16 08:30 12/06/16 09:13 DC Diphenhydramine HCl (Benadryl) 25 mg Q6H PRN IV ITCHING 12/06/16 08:30 12/06/16 09:13 DC Ondansetron HCl (Zofran Inj) 4 mg Q6H PRN IV NAUSEA AND/OR VOMITING 12/06/16 08:30 12/06/16 09:13 DC Zolpidem Tartrate (Ambien) 5 mg HS MAY REPEAT X 1 PRN PO INSOMNIA 12/06/16 08:30 12/06/16 09:13 DC Miscellaneous Information Duramorph: 0.2 mg Spi... GIVEN XX 12/06/16 08:30 12/06/16 09:13 DC Lactated Ringer's 1,000 ml @ 125 mls/hr Q8H IV 12/06/16 09:05 12/07/16 23:03 DC 12/07/16 01:21 Clindamycin HCl/ Dextrose (Cleocin 900 Mg/ D5W (Pmx)) 50 ml @ 50 mls/hr Q8H IVPB 12/06/16 09:30 12/07/16 02:29 DC 12/07/16 01:20 Oxycodone/ Acetaminophen (Percocet (5/ 325)) 1 tab Q4H PRN PO PAIN LEVEL 4-6 12/06/16 09:30 12/08/16 07:35 Oxycodone/ Acetaminophen (Percocet (5/ 325)) 2 tab Q4H PRN PO PAIN LEVEL 7-10 12/06/16 09:30 Ibuprofen (Motrin) 600 mg Q6 PO 12/06/16 12:00 12/08/16 05:23 Simethicone (Mylicon) 160 mg Q8H PRN PO DISTENSION/GAS/BLOATING 12/06/16 09:30 Senna/Docusate Sodium (Senokot-S) 1 tab BID PO 12/06/16 21:00 12/08/16 10:19 Lanolin 1 applic 1 applic BEDSIDE MEDICATION PRN TOP BEDSIDE FOR [place] TO NIPPLES 12/06/16 09:30 12/06/16 16:23 Oxytocin/Lactated Ringer's 500 ml @ 0 mls/hr ONCE PRN IV For Hemorrhage Management 12/06/16 09:30 12/06/16 13:12 Methylergonovine Maleate (Methergine) 0.2 mg ONCE PRN IM VAGINAL BLEEDING 12/06/16 09:30 Carboprost Tromethamine (Hemabate) 250 mcg ONCE PRN IM VAGINAL BLEEDING 12/06/16 09:30 Misoprostol (Cytotec) 1,000 mcg ONCE PRN MO VAGINAL BLEEDING 12/06/16 09:30 Ferrous Sulfate (Ferrous Sulfate (Ec)) 325 mg BID PO 12/06/16 21:00 12/08/16 10:19 Naloxone HCl (Narcan) 0.1 mg Q2M PRN IV FOR RESP RATE 8 OR LESS 12/06/16 13:00 12/07/16 12:59 DC Ketorolac Tromethamine (Toradol) 30 mg Q6H PRN IV PAIN 12/06/16 13:00 12/07/16 12:59 DC 12/07/16 08:33 Hydromorphone HCl (Dilaudid) 0.2 mg Q3H PRN IV PAIN LEVEL 1-5 12/06/16 13:00 12/07/16 12:59 DC Hydromorphone HCl (Dilaudid) 0.4 mg Q3H PRN IV PAIN LEVEL 6-10 12/06/16 13:00 12/07/16 12:59 DC Diphenhydramine HCl (Benadryl) 25 mg Q6H PRN IV ITCHING 12/06/16 13:00 12/07/16 12:59 DC Ondansetron HCl (Zofran Inj) 4 mg Q6H PRN IV NAUSEA AND/OR VOMITING 12/06/16 13:00 12/07/16 12:59 DC Prochlorperazine (Compazine Inj) 10 mg ONCE PRN IV NAUSEA AND/OR VOMITING 12/06/16 13:00 12/07/16 12:59 DC Zolpidem Tartrate (Ambien) 5 mg HS MAY REPEAT X 1 PRN PO INSOMNIA 12/06/16 13:00 12/07/16 12:59 DC Miscellaneous Information Duramorph: 0.2 mg Spi... GIVEN XX 12/06/16 13:00 Clindamycin HCl/ Dextrose (Cleocin 900 Mg/ D5W (Pmx)) 50 ml @ 50 mls/hr Q8H IVPB 12/07/16 09:00 3/10/17 09:59 DC 12/07/16 09:45 MASHA NEFF MD Dec 08, 2016 11:21
[2016-12-08 20:00] VITALS: BP 97/62; PULSE 86; RESP 20
[2016-12-09 04:00] VITALS: BP 102/61; PULSE 80; RESP 18
[2016-12-09] MEDS: IBUPROFEN 600 MG TAB PO SCH ×2 (05:47→12:29)
[2016-12-09 07:45] VITALS: BP 106/62; PULSE 75; RESP 18
[2016-12-09] MEDS: FERROUS SULFATE (EC) 325 MG TAB PO SCH (09:15)
[2016-12-09] MEDS: SENNA/DOCUSATE NA (8.6MG/50MG) TAB PO SCH (09:15)
--- NOTE | 2016-12-09 12:33 | PD.PPDC ---
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
--- NOTE | 2016-12-09 12:34 | DS ---
Date/Time of Note Date/Time of Note DATE: 12/09/16 TIME: 12:33 Obstetrical Discharge Record Final Diagnosis Final Diagnosis: Term delivered Section Section: Repeat Condition on Discharge Physical Assessment Voiding: Yes Bowel Movement: Yes Breast: Soft, non-tender Fundus: Firm Abdomen and Incision: CDI Episiotomy: none Patient Condition: Stable DEMETRIS SCOTT MD Dec 09, 2016 12:34
--- NOTE | 2016-12-09 14:16 | OPR ---
DATE OF OPERATION: 12/06/2016 PRIMARY DIAGNOSIS: A 30-year-old 6, para 2, intrauterine at 39 weeks' gestational age, history of x2 previous C-sections, with a history of right salpingo-oophorectomy, desires elec tive repeat delivery with tubal sterilization. POSTOPERATIVE DIAGNOSIS: A 30-year-old 6, para 2, intrauterine at 39 weeks' gesta tional age, history of x2 previous C-sections, with a history of right salpingo-oophorectomy, desire s elective repeat delivery with tubal sterilization. OPERATION PERFORMED: Repeat low transverse delivery with left tubal ligation. SURGEON: Hardik Friedman MD INDUSTRIAL GAS SERVICE HELPER: Dr. Jamil FINDINGS: A viable female, 9 and 9 respectively at 1 and 5 minutes, weight 6 pounds, 11 ounce s. Normal left ovary and tube. No visualization of the right ovary and tube secondary to history o f right salpingo-oophorectomy. ESTIMATED BLOOD LOSS: 800 mL. SPECIMEN: Portion of the right and left fallopian tube. COMPLICATIONS OF PROCEDURE: None. TYPE OF ANESTHESIA: Spinal. DESCRIPTION OF PROCEDURE: After explaining the risks, benefits, and alternatives to the patient and consent signed in chart, the patient was taken to the operating room where spinal anesthesia was fo und to be adequate. She was then prepared and draped in normal sterile fashion in dorsal supine pos ition with a leftward tilt. A Pfannenstiel skin incision was then made with a scalpel and carried to the underlying layer of the fascia. The fascia was incised in the midline. The incision was extended laterally with Bartlett sciss ors. The superior aspect of the fascial incision was grasped with curved clamps, elevated, and the underlying rectus muscles dissected off bluntly. Attention was then turned to the inferior aspect o f the incision, which in similar fashion was grasped, tented up with curved clamps, and the rectus m uscles dissected off bluntly. The rectus muscles were in midline, peritoneum identified, tented up and entered sharply with Metzenbaum scissors. The peritoneal incision was extended superi evangelista with good visualization of bladder. The bladder blade was then inserted, and the vesicouterine peritoneum identified, grasped with pickups, and entered sharply with Metzenbaum scissors. This in cision was then extended laterally and the bladder flap created digitally. The bladder blade was th en reinserted, and the lower segment incised in transverse fashion with a scalpel. The uterine inci yolie was extended laterally. The bladder blade was removed, and the infant's head delivered atrauma tically. The nose and mouth were suctioned, and cord clamped and cut. The was handed off to awaiting customer retention representative. The placenta was then removed. The uterus was exposed and cleared of all clots and debris. The theresa rine incision was repaired with 1-0 chromic in a running locked fashion. A second layer of same sut ure was used for imbrication and obtained excellent hemostasis. At this point, the left fallopian tube was identified. A Fargo clamp was then used to grasp the tu be approximately 4 cm from the cornual region. A 3-cm segment of tube was then ligated with a free tie of plain gut and excised. Good hemostasis was noted. The right fallopian tube was not visualiz ed because of the history of right salpingo-oophorectomy. The uterus was returned to the abdomen. A gain, excellent hemostasis was noted. The gutters were cleared of all clots, and the peritoneum and rectus abdominis muscles were reapproximated with 3-0 Vicryl. The fascia was reapproximated with 0 Vicryl in a running fashion. The skin was closed with bob. The patient tolerated procedure well. Sponge, lap, and needle counts correct x2. The patient was t aken to recovery room in stable condition. Dictated By: HARDIK SNYDER/FAITH Conf#: [id number] DID#: [id number]
== END 2016-12-09 13:30 | disposition home or self-care (01) | DRG 766 ==
LOC: L-D 05:39 → PP1 11:47
PROVIDERS: ADMIT Obstetrics & Gynecology; ATTEND Obstetrics & Gynecology
PROC: 0UB60ZZ Excision of Left Fallopian Tube, Open Approach (ICD-10-PCS; 2016-12-06)
PROC: 10D00Z1 Extraction of Products of Conception, Low, Open Approach (ICD-10-PCS; principal; 2016-12-06 07:30)
DX: O34.211 Maternal care for low transverse scar from previous cesarean delivery (principal); Z37.0 Single live birth; Z3A.39 39 weeks gestation of pregnancy; Z90.79 Acquired absence of other genital organ(s)
CPT/HCPCS: 85025; 85610; 85730; 86592; 86703; 86850; 86900; 86901; 87340; 88302; 94760; 99464; J1580; J1885; J2274; J2370; J2405; J2590; J2765; J3010; J7120